=== PATIENT | female | born 1940 | race Caucasian/White ===

== ENCOUNTER 2019-03-24 11:08 | Observation (INO) ==
[2019-03-24] MEDS ORDERED: Naloxone 0.4 MG/ML INJ IVP PRN (13:38)
[2019-03-24] MEDS: Aspirin Enteric Coated 325 MG Tablet PO SCH (14:02)
[2019-03-24] MEDS ORDERED: Gadolinium Contrast Agent (WT Based) IV PRN (15:44)
[2019-03-24] MEDS: Acetaminophen 325 MG TABLET PO PRN (23:39)
[2019-03-25 05:27] LABS: Hematocrit 43.7 % (35.3-44.9); Hemoglobin 14.1 g/dL (11.5-15.4); Mean Corpuscular HGB Conc 32.3 g/dL (31.6-35.5); Mean Corpuscular Hemoglobin 29.6 pg (28.0-33.3); Mean Corpuscular Volume 91.6 fL (83.0-100.0); Mean Platelet Volume 10.6 fL (9.4-12.4); Platelet Count 188 K/mcL (140-400); Red Blood Count 4.77 M/mcL (3.82-4.97); Red Cell Distribution Width 12.3 % (11.5-14.5); White Blood Count 6.8 K/mcL (4.3-11.1)
[2019-03-25 05:34] LABS: INR 1.1; Prothrombin Time 12.3 Seconds (9.4-12.1)
[2019-03-25 05:50] LABS: BUN/Creatinine Ratio 20 (6-26); Blood Urea Nitrogen 18 mg/dL (8-23); Carbon Dioxide 23 mEq/L (23-29); Chloride 105 mEq/L (98-107); Chol/HDL Ratio 4.3 (0-4.9); Cholesterol 159 mg/dL (< 200); Glucose 115 mg/dL (70-105); HDL Cholesterol 37 mg/dL (40-59); LDL Cholesterol,Calculated 91 mg/dL (0-99); Magnesium 2.1 mg/dL (1.6-2.6); Osmolality,Calculated 289 (280-300); Potassium 3.4 mEq/L (3.5-5.1); Sodium 138 mEq/L (136-145); Triglycerides 154 mg/dL (< 150); eGFR For African Americans > 60 (> 60); eGFR For Non-African Americans 59 (> 60)
[2019-03-25 08:05] LABS: Estimated Average Glucose 117 mg/dl
[2019-03-25] MEDS: Aspirin Enteric Coated 325 MG Tablet PO SCH (08:32)
[2019-03-25] MEDS: Potassium Chloride Elixir 20 MEQ/15 ML UDC PO ONE ×2 (11:01→11:08)
[2019-03-25] MEDS: Acetaminophen 325 MG TABLET PO PRN (16:40)
[2019-03-26 05:59] LABS: Basophils # 0.1 K/mcL (0.0-0.2); Basophils % 1.2 %; Eosinophils # 0.3 K/mcL (0.0-0.6); Eosinophils % 4.7 %; Hematocrit 43.7 % (35.3-44.9); Hemoglobin 14.2 g/dL (11.5-15.4); Immature Granulocytes % 0.5 % (0-4); Lymphocytes # 1.8 K/mcL (0.6-4.6); Lymphocytes % 26.4 %; Mean Corpuscular HGB Conc 32.5 g/dL (31.6-35.5); Mean Corpuscular Hemoglobin 29.1 pg (28.0-33.3); Mean Corpuscular Volume 89.5 fL (83.0-100.0); Mean Platelet Volume 10.6 fL (9.4-12.4); Monocytes # 0.6 K/mcL (0.0-1.3); Monocytes % 8.9 %; Neutrophils # 3.9 K/mcL (1.6-8.9); Platelet Count 188 K/mcL (140-400); Red Blood Count 4.88 M/mcL (3.82-4.97); Red Cell Distribution Width 12.5 % (11.5-14.5); Segmented Neutrophils % 58.3 %; White Blood Count 6.6 K/mcL (4.3-11.1)
[2019-03-26 06:06] LABS: BUN/Creatinine Ratio 23 (6-26); Blood Urea Nitrogen 21 mg/dL (8-23); Calcium 8.9 mg/dL (8.6-10.3); Carbon Dioxide 23 mEq/L (23-29); Chloride 107 mEq/L (98-107); Glucose 111 mg/dL (70-105); Osmolality,Calculated 288 (280-300); Potassium 4.1 mEq/L (3.5-5.1); Sodium 137 mEq/L (136-145); eGFR For African Americans > 60 (> 60); eGFR For Non-African Americans 59 (> 60)
[2019-03-26] MEDS ORDERED: NON-FORMULARY MEDICATION 1 EACH EACH (Omega-3 Fatty Acids/Fish Oil [Eql Omega-3 Fish Oil 1 PO SCH (09:00)
[2019-03-26] MEDS ORDERED: Metoprolol XL (24 HR) Succ 50 MG TAB.ER.24H PO SCH (10:45)
[2019-03-26] MEDS ORDERED: amLODIPine 5 MG TABLET PO SCH (10:45)
[2019-03-26 15:43] VITALS: BP 147/71
== END 2019-03-26 16:48 | disposition home or self-care (01) ==
LOC: 3BNU → SUATTDRO 12:24
PROVIDERS: ADMIT Internal Medicine; ATTEND Internal Medicine